=== PATIENT | male | born 1935 | race Two or more races ===

== ENCOUNTER 2016-11-20 00:40 | Inpatient (IN) | payer MEDICARE, OTHER ==
[~2016-11-20] VITALS: Ht 172.7 cm; Wt 80.7 kg
--- NOTE | 2016-11-20 00:30 | NUR ---
GPS RN NOTE RECEIVED PATIENT VIA GURNEY FROM [facility], PATIENT IS ALERT AND ORIENTEDX2, CONFUSED, IRRITABLE MOOD, ON 5150 DTO, AND BECAME MORE AGGRESSIVE RECENTLY PER PAPER REPORT. AMBULATORY AND DISCOLORATION ON BUE NOTED. PICTURES TAKEN AND PUT THEM IN A CHART. SRX2, BED IN LOW POSITION, WILL CONTINUE TO MONITOR PATIENT.
[2016-11-20 01:00] VITALS: BP 132/84
[2016-11-20] MEDS ORDERED: TEMAZEPAM 7.5 MG CAPSULE PO PRN (01:00)
[2016-11-20] MEDS ORDERED: MAG HYDROX/AL HYDROX/SIMETH 30 ML UDC PO PRN (01:00)
[2016-11-20] MEDS ORDERED: ACETAMINOPHEN 325 MG TABLET PO PRN (01:00)
[2016-11-20] MEDS ORDERED: MAGNESIUM HYDROXIDE 30 ML UDC PO PRN (01:00)
[2016-11-20] MEDS ORDERED: LORAZEPAM 0.5 MG TABLET PO PRN (01:00)
[2016-11-20] MEDS ORDERED: INSU100I4 SQ (01:03)
[2016-11-20] MEDS ORDERED: ATOR40TA PO (01:03)
[2016-11-20] MEDS ORDERED: CHOL100040 PO (01:03)
[2016-11-20] MEDS ORDERED: AMLO10TA2 PO (01:03)
[2016-11-20] MEDS ORDERED: FURO40TA5 PO (01:03)
[2016-11-20] MEDS ORDERED: FOLI1TAB16 PO (01:03)
[2016-11-20] MEDS ORDERED: LOSA50TA21 PO (01:08)
[2016-11-20] MEDS ORDERED: METO25TA6 PO (01:08)
[2016-11-20] MEDS ORDERED: LEVO50TA PO (01:08)
[2016-11-20] MEDS ORDERED: INSU100V7 SQ (01:08)
[2016-11-20] MEDS ORDERED: SERT50TA12 PO (01:08)
[2016-11-20] MEDS ORDERED: LACT1CAP39 PO (01:08)
[2016-11-20] MEDS ORDERED: TRAM50TA2 PO ×2 (01:08→01:09)
[2016-11-20] MEDS ORDERED: LORAZEPAM 1 MG TABLET ONE (01:15)
[2016-11-20] MEDS ORDERED: TRAMADOL HCL 50 MG TABLET PO PRN (01:30)
[2016-11-20 08:44] VITALS: BP 140/88
[2016-11-20] MEDS ORDERED: INSULIN ASPART NOVOLOG 100 UNIT/ML CARTRIDGE SQ SCH (09:00)
[2016-11-20] MEDS: FOLIC ACID 1 MG TABLET PO SCH (09:01)
[2016-11-20] MEDS: METOPROLOL TARTRATE 25 MG TABLET PO SCH (09:02)
[2016-11-20] MEDS: CHOLECALCIFEROL 1,000 UNIT TABLET (VIT D3) PO SCH (09:02)
[2016-11-20] MEDS: ACIDOPHILUS/BULGARICUS 1 EACH TAB.CHEW PO SCH (09:02)
[2016-11-20] MEDS: AMLODIPINE BESYLATE 10 MG TABLET PO SCH (09:02)
[2016-11-20] MEDS: LOSARTAN POTASSIUM 50 MG TABLET PO SCH (09:02)
[2016-11-20] MEDS: ATORVASTATIN 40 MG TABLET PO SCH (09:03)
[2016-11-20] MEDS: FUROSEMIDE 40 MG TABLET PO SCH (09:03)
[2016-11-20] MEDS: LEVOTHYROXINE SODIUM 50 MCG TABLET PO SCH (09:04)
--- NOTE | 2016-11-20 10:30 | NUR ---
Patient resides in a board and care facility ([facility] [address] [address]). SYDNEY attempted to contact Fredi or Karla (administrators- [phone]) to see if they will be re-accepting the patient however they did not answer and SYDNEY left a message with her contact information. SYDNEY spoke to the patient's girlfriend (Kojo Trimble- [phone]) who stated that he is unsure if board and care will be re-accepting him as he has become aggressive towards staff members. SYDNEY will work with MD and patient for appropriate placement. SW will help form a safe and proper discharge. Patient is in need of psychiatrist referrals prior to discharge. Addendum: 11/20/16 at 1030 by DAVE GRIMES Initial DC Plan:
[2016-11-20] MEDS ORDERED: DEXTROSE 50%-WATER 50 ML DISP.SYRIN IV PRN (11:30)
[2016-11-20] MEDS: BLOOD SUGAR DIAGNOSTIC 1 EACH STRIP VI SCH ×3 (12:29→21:24)
[2016-11-20] MEDS: INSULIN ASPART NOVOLOG 100 UNIT/ML CARTRIDGE SQ SCH ×2 (12:32→17:48)
[2016-11-20 15:49] VITALS: BP 106/68
[2016-11-20] MEDS: QUETIAPINE FUMARATE 25 MG TABLET PO SCH (16:17)
[2016-11-20] MEDS: INSULIN REGULAR, HUMAN 100 UNIT/ML 3 ML VIAL SQ PRN (17:50)
--- NOTE | 2016-11-20 19:30 | NUR ---
GPSRN RECEIVED FULLY AWAKE, COOPERATIVE, LIMITED VERBAL. APPEARS TO UNDERSTAND PLAN OF CARE AND MEDICATION REGIMEN. NO NEEDS FOR NOW.
[2016-11-20 20:00] VITALS: BP 142/98
[2016-11-20] MEDS: TRAMADOL HCL 50 MG TABLET PO SCH (21:23)
[2016-11-20] MEDS: SERTRALINE HCL 50 MG TABLET PO SCH (21:24)
[2016-11-20] MEDS: INSULIN DETEMIR 100 UNIT/ML CARTRIDGE SQ SCH (21:31)
[2016-11-20] MEDS: *INSULIN REGULAR(HUMULIN R)HUM 100 UNIT/ML VIAL SQ PRN (21:33)
[2016-11-20] MEDS ORDERED: SERTRALINE HCL 50 MG TABLET PO SCH ×2 (22:00)
--- NOTE | 2016-11-20 22:00 | NUR ---
GPSRN BS 178, DUE MEDS ADMINISTERED. SNACKS AT BEDSIDE, ENCOURAGED TO EAT. STATED WILL FINISH LATER. OBSERVED FOR SIGNS AND SYMPTOMS OF HYPO AND HYPERGLYCEMIA.
--- NOTE | 2016-11-20 23:57 | NUR ---
GPSRN SLEEPING APPEARS COMFORTABLE.
--- NOTE | 2016-11-21 06:54 | NUR ---
GPSRN STILL ASLEEP. NO SIGNS OF HYPO/HYPERGLYCEMIA. CLOSELY WATCHED
[2016-11-21] MEDS: INSULIN REGULAR, HUMAN 100 UNIT/ML 3 ML VIAL SQ PRN ×2 (07:44→12:06)
[2016-11-21] MEDS: BLOOD SUGAR DIAGNOSTIC 1 EACH STRIP VI SCH ×4 (07:45→21:29)
[2016-11-21] MEDS: INSULIN ASPART NOVOLOG 100 UNIT/ML CARTRIDGE SQ SCH ×3 (07:45→17:08)
[2016-11-21] MEDS: ATORVASTATIN 40 MG TABLET PO SCH (08:25)
[2016-11-21] MEDS: QUETIAPINE FUMARATE 25 MG TABLET PO SCH ×2 (08:26→17:06)
[2016-11-21] MEDS: CHOLECALCIFEROL 1,000 UNIT TABLET (VIT D3) PO SCH (08:26)
[2016-11-21] MEDS: FUROSEMIDE 40 MG TABLET PO SCH (08:26)
[2016-11-21] MEDS: FOLIC ACID 1 MG TABLET PO SCH (08:26)
[2016-11-21] MEDS: METOPROLOL TARTRATE 25 MG TABLET PO SCH (08:26)
[2016-11-21] MEDS: ACIDOPHILUS/BULGARICUS 1 EACH TAB.CHEW PO SCH (08:26)
[2016-11-21] MEDS: LEVOTHYROXINE SODIUM 50 MCG TABLET PO SCH (08:26)
[2016-11-21] MEDS: AMLODIPINE BESYLATE 10 MG TABLET PO SCH (08:27)
[2016-11-21] MEDS: LOSARTAN POTASSIUM 50 MG TABLET PO SCH (08:27)
[2016-11-21 08:28] LABS: ALBUMIN 2.9 g/dL (3.4-5.0); BILIRUBIN,TOTAL 0.4 mg/dL (0.2-1.0); CALCIUM, SERUM 8.2 mg/dL (8.5-10.1); CREATININE 2.7 mg/dL (0.6-1.3); POTASSIUM 3.9 mmol/L (3.5-5.1); TOTAL PROTEIN, SERUM 5.9 g/dL (6.4-8.2)
[2016-11-21 08:32] VITALS: BP 99/59
[2016-11-21] MEDS: INSULIN DETEMIR 100 UNIT/ML CARTRIDGE SQ SCH ×2 (08:33→21:33)
[2016-11-21 08:34] LABS: THYROID STIMULATING HORMONE 2.429 uIU/mL (0.358-3.74)
[2016-11-21 16:24] VITALS: BP 127/92
--- NOTE | 2016-11-21 19:30 | NUR ---
GPS RN NOTE, RECEIVED PATIENT AWAKE AND IN BED, NO S/S OR COMPLAINTS OF PAIN AT THIS TIME. PATIENT IS DISPLAYING NO S/S OF APPARENT DISTRESS AT THIS TIME. PATIENT BREATHING IS UNLABORED WITH EQUAL RISE AND FALL OF THE CHEST. PATIENT IS ALERT AND ORIENTED X 2 ON ROOM AIR WITH A SPO2 95%. PATIENT COMPLIANT WITH MEDICATIONS, DEPRESSED, EASILY AGITATED WITH CARE, DISORGANIZED, CONFUSED AT TIMES, AND NEEDS REORIENTATION. PATIENT DENIES SUICIDE AND HOMICIDAL IDEATIONS AT THIS TIME. PATIENT ASSISTED WITH TURNING AND REPOSITIONING Q2HR AND PRN FOR COMFORT AND CIRCULATION. PATIENT HAS NO NEEDS AT THIS TIME. PATIENT REFUSED SKIN ASSESSMENT TODAY. PATIENT EDUCATED ON THE USE OF THE CALL TOUSSAINT. PATIENT BED SIDE RAILS UP X2 FOR SAFETY, BED IS LOCKED AND LOW WILL CONTINUE TO MONITOR AND MAINTAIN SAFETY.
[2016-11-21 20:11] VITALS: BP 120/69
[2016-11-21] MEDS: TRAMADOL HCL 50 MG TABLET PO SCH (21:24)
[2016-11-21] MEDS: SERTRALINE HCL 50 MG TABLET PO SCH (21:24)
--- NOTE | 2016-11-21 21:29 | NUR ---
GPS RN NOTE, PERFORMED ACCU CHECK ON PATIENT WITH A BLOOD SUGAR RESULT OF 195. GAVE 3 UNITS OF REGULAR INSULIN PER SLIDING SCALE AND GAVE 25 UNITS OF LEVEMIR INSULIN. WILL CONTINUE TO MONITOR THIS PATIENT.
[2016-11-21] MEDS: *INSULIN REGULAR(HUMULIN R)HUM 100 UNIT/ML VIAL SQ PRN (21:34)
[2016-11-22 07:10] LABS: BASOPHILS % (AUTO) 0.3 % (0.0-2.0); EOSINOPHILS # (AUTO) 0.1 /CMM (0.0-0.7); EOSINOPHILS % (AUTO) 1.1 % (0.0-6.0); HEMATOCRIT 32 % (39-51); HEMOGLOBIN 10.8 g/dL (13.5-17.5); LYMPHOCYTES % (AUTO) 12.3 % (20.0-44.0); MEAN CORPUSCULAR HEMOGLOBIN 31 PG (26.0-33.0); MEAN CORPUSCULAR HGB CONC 34 g/dl (31.0-36.0); MEAN CORPUSCULAR VOLUME 91 fL (80-96); MONOCYTES # (AUTO) 0.8 /CMM (0.1-1.30); MONOCYTES % (AUTO) 9.9 % (2.0-12.0); NEUTROPHILS # (AUTO) 6.5 /CMM (1.8-8.9); NEUTROPHILS % (AUTO) 76.4 % (43.0-81.0); PLATELET COUNT (AUTO) 145 /CMM (150-450); RDW COEFFICIENT OF VARIATION 13.9 (11.5-15.0); RED BLOOD CELL COUNT(AUTO) 3.52 MIL/uL (4.5-6.0); WHITE BLOOD COUNT (AUTO) 8.5 K/uL (4.3-11.0)
[2016-11-22 07:38] LABS: ALBUMIN 2.8 g/dL (3.4-5.0); BILIRUBIN,TOTAL 0.3 mg/dL (0.2-1.0); CALCIUM, SERUM 8.2 mg/dL (8.5-10.1); CREATININE 2.5 mg/dL (0.6-1.3); MAGNESIUM 2.4 mg/dL (1.8-2.4); PHOSPHORUS 3.9 mg/dL (2.5-4.9); POTASSIUM 3.8 mmol/L (3.5-5.1); TOTAL PROTEIN, SERUM 5.8 g/dL (6.4-8.2)
[2016-11-22] MEDS: BLOOD SUGAR DIAGNOSTIC 1 EACH STRIP VI SCH ×4 (08:19→22:00)
[2016-11-22] MEDS: LEVOTHYROXINE SODIUM 50 MCG TABLET PO SCH (08:25)
[2016-11-22 08:26] VITALS: BP 144/82
[2016-11-22] MEDS: INSULIN ASPART NOVOLOG 100 UNIT/ML CARTRIDGE SQ SCH ×3 (08:28→17:37)
[2016-11-22] MEDS: INSULIN DETEMIR 100 UNIT/ML CARTRIDGE SQ SCH ×2 (08:29→21:54)
[2016-11-22] MEDS: FOLIC ACID 1 MG TABLET PO SCH (08:49)
[2016-11-22] MEDS: ACIDOPHILUS/BULGARICUS 1 EACH TAB.CHEW PO SCH (08:49)
[2016-11-22] MEDS: METOPROLOL TARTRATE 25 MG TABLET PO SCH (08:50)
[2016-11-22] MEDS: QUETIAPINE FUMARATE 25 MG TABLET PO SCH ×2 (08:50→17:32)
[2016-11-22] MEDS: CHOLECALCIFEROL 1,000 UNIT TABLET (VIT D3) PO SCH (08:50)
[2016-11-22] MEDS: ATORVASTATIN 40 MG TABLET PO SCH (08:50)
[2016-11-22] MEDS: AMLODIPINE BESYLATE 10 MG TABLET PO SCH (08:50)
[2016-11-22] MEDS: LOSARTAN POTASSIUM 50 MG TABLET PO SCH (08:51)
[2016-11-22] MEDS: INSULIN REGULAR, HUMAN 100 UNIT/ML 3 ML VIAL SQ PRN ×2 (12:13→17:39)
[2016-11-22 15:59] VITALS: BP 100/51
--- NOTE | 2016-11-22 19:30 | NUR ---
GPS RN NOTE, RECEIVED PATIENT AWAKE AND IN BED, NO S/S OR COMPLAINTS OF PAIN AT THIS TIME. PATIENT IS DISPLAYING NO S/S OF APPARENT DISTRESS AT THIS TIME. PATIENT BREATHING IS UNLABORED WITH EQUAL RISE AND FALL OF THE CHEST. PATIENT IS ALERT AND ORIENTED X 2 ON ROOM AIR WITH A SPO2 97%. PATIENT COMPLIANT WITH MEDICATIONS, DEPRESSED, CALM, COOPERATIVE, DISORGANIZED, AND NEEDS REORIENTATION. PATIENT DENIES SUICIDE AND HOMICIDAL IDEATIONS AT THIS TIME. PATIENT ASSISTED WITH TURNING AND REPOSITIONING Q2HR AND PRN FOR COMFORT AND CIRCULATION. PATIENT HAS NO NEEDS AT THIS TIME. PATIENT REFUSED SKIN ASSESSMENT TODAY. PATIENT EDUCATED ON THE USE OF THE CALL TOUSSAINT. PATIENT BED SIDE RAILS UP X2 FOR SAFETY, BED IS LOCKED AND LOW WILL CONTINUE TO MONITOR AND MAINTAIN SAFETY.
[2016-11-22 19:54] VITALS: BP 111/79
[2016-11-22] MEDS: TRAMADOL HCL 50 MG TABLET PO SCH (21:40)
[2016-11-22] MEDS: SERTRALINE HCL 50 MG TABLET PO SCH (21:40)
--- NOTE | 2016-11-22 22:00 | NUR ---
GPS RN NOTE, PERFORMED ACCU CHECK ON PATIENT WITH A BLOOD SUGAR RESULT OF 83. GAVE 0 UNITS OF REGULAR INSULIN PER SLIDING SCALE AND GAVE 20 UNITS OF LEVEMIR INSULIN. GAVE WHOLE TUNA SAND WITCH 2 GRAM CRACKERS, 2 APPLE JUICES, AND 1 ORANGE JUICE. WILL CONTINUE TO MONITOR THIS PATIENT.
[2016-11-23 07:10] LABS: CALCIUM, SERUM 7.7 mg/dL (8.5-10.1); CREATININE 2.5 mg/dL (0.6-1.3)
[2016-11-23] MEDS: BLOOD SUGAR DIAGNOSTIC 1 EACH STRIP VI SCH ×4 (07:22→21:45)
[2016-11-23] MEDS: INSULIN ASPART NOVOLOG 100 UNIT/ML CARTRIDGE SQ SCH ×3 (07:25→17:19)
[2016-11-23] MEDS: LEVOTHYROXINE SODIUM 50 MCG TABLET PO SCH (07:41)
[2016-11-23 08:00] VITALS: BP 127/88
[2016-11-23] MEDS: ATORVASTATIN 40 MG TABLET PO SCH (08:15)
[2016-11-23] MEDS: LOSARTAN POTASSIUM 50 MG TABLET PO SCH (08:16)
[2016-11-23] MEDS: ACIDOPHILUS/BULGARICUS 1 EACH TAB.CHEW PO SCH (08:16)
[2016-11-23] MEDS: QUETIAPINE FUMARATE 25 MG TABLET PO SCH ×2 (08:16→17:24)
[2016-11-23] MEDS: METOPROLOL TARTRATE 25 MG TABLET PO SCH (08:18)
[2016-11-23] MEDS: FOLIC ACID 1 MG TABLET PO SCH (08:19)
[2016-11-23] MEDS: AMLODIPINE BESYLATE 10 MG TABLET PO SCH (08:19)
[2016-11-23] MEDS: CHOLECALCIFEROL 1,000 UNIT TABLET (VIT D3) PO SCH (08:19)
[2016-11-23] MEDS: INSULIN DETEMIR 100 UNIT/ML CARTRIDGE SQ SCH ×2 (08:25→21:00)
[2016-11-23 16:00] VITALS: BP 134/88
[2016-11-23] MEDS: INSULIN REGULAR, HUMAN 100 UNIT/ML 3 ML VIAL SQ PRN (17:21)
--- NOTE | 2016-11-23 19:30 | NUR ---
GPS OPENING NOTES RECEIVED Pt AWAKE IN ROOM WITH FAMILY VISITING AT BEDSIDE. NO S/S OF ACUTE DISTRESS OR SOB NOTED. Pt BREATHING IS UNLABORED WITH EQUAL RISE AND FALL OF THE CHEST. NO SIGNS OF PAIN NOTED AT THIS TIME. Pt IS A/OX2-3, AMBULATORY, VERBAL, ABLE TO MAKE NEEDS KNOWN. SAFETY MEASURES IN PLACE. BED LOW, LOCKED, HOB ELEVATED, & SIDE RAILS UP. WILL CONTINUE TO MONITOR Pt THROUGHOUT THE NIGHT AND MAINTAIN SAFETY.
[2016-11-23 20:10] VITALS: BP 106/69
[2016-11-23] MEDS: SERTRALINE HCL 50 MG TABLET PO SCH (21:36)
[2016-11-23] MEDS: TRAMADOL HCL 50 MG TABLET PO SCH (21:39)
--- NOTE | 2016-11-23 22:36 | NUR ---
BG 80. WITH HELD SCHEDULED LEVEMIR DOSE OF 20UN DUE TO LOW BG. PROVIDED SNACKS AND JUICE.
--- NOTE | 2016-11-24 06:30 | NUR ---
RN CLOSING NOTES NO SIGNIFICANT CHANGES. Pt DID NOT SLEEP DURING THE NIGHT EVEN WITH RESTORIL AND ATIVAN GIVEN. NO S/S OF ACUTE DISTRESS OR SOB NOTED DURING THE NIGHT. ALL SAFETY MEASURES CARRIED OUT. ALL NEEDS MET AND ATTENDED TO. WILL ENDORSE TO DAYSHIFT RN FOR Pt's ASHLEY.
[2016-11-24] MEDS: BLOOD SUGAR DIAGNOSTIC 1 EACH STRIP VI SCH ×4 (07:06→21:09)
[2016-11-24 08:00] VITALS: BP 116/85
[2016-11-24] MEDS: QUETIAPINE FUMARATE 25 MG TABLET PO SCH ×2 (08:28→16:21)
[2016-11-24] MEDS: ACIDOPHILUS/BULGARICUS 1 EACH TAB.CHEW PO SCH (08:28)
[2016-11-24] MEDS: AMLODIPINE BESYLATE 10 MG TABLET PO SCH (08:29)
[2016-11-24] MEDS: FOLIC ACID 1 MG TABLET PO SCH (08:29)
[2016-11-24] MEDS: METOPROLOL TARTRATE 25 MG TABLET PO SCH (08:30)
[2016-11-24] MEDS: ATORVASTATIN 40 MG TABLET PO SCH (08:30)
[2016-11-24] MEDS: CHOLECALCIFEROL 1,000 UNIT TABLET (VIT D3) PO SCH (08:31)
[2016-11-24] MEDS: LOSARTAN POTASSIUM 50 MG TABLET PO SCH (08:31)
[2016-11-24] MEDS: LEVOTHYROXINE SODIUM 50 MCG TABLET PO SCH (08:31)
[2016-11-24] MEDS: INSULIN ASPART NOVOLOG 100 UNIT/ML CARTRIDGE SQ SCH ×3 (08:36→16:50)
[2016-11-24] MEDS: INSULIN DETEMIR 100 UNIT/ML CARTRIDGE SQ SCH ×2 (08:38→21:00)
[2016-11-24] MEDS: INSULIN REGULAR, HUMAN 100 UNIT/ML 3 ML VIAL SQ PRN ×2 (12:28→16:51)
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
[2016-11-24 14:14] LABS: *SPE A/G RATIO 1.3 (0.7-1.7); *SPE ALPHA-1-GLOBULIN 0.2 g/dL (0.0-0.4); *SPE ALPHA-2-GLOBULIN 0.8 g/dL (0.4-1.0); *SPE BETA GLOBULIN 0.8 g/dL (0.7-1.3); *SPE GLOBULIN, TOTAL 2.4 g/dL (2.2-3.9); *SPE M-SPIKE Not Observed g/dL (Not Observed); *SPE PROTEIN TOTAL 5.4 g/dL (6.0-8.5); *SPEGAMMA GLOBULIN 0.6 g/dL (0.4-1.8)
[2016-11-24 16:00] VITALS: BP 122/68
--- NOTE | 2016-11-24 19:30 | NUR ---
RN OPENING NOTES: PATIENT IN ROOM ON BED, ASLEEP BUT EASILY AROUSABLE; ALERT X1-2 AND VERBALLY RESPONSIVE. PATIENT IS NOTED TO BE CALM. PATIENT IS NOT IN APPARENT DISTRESS AT THIS TIME, NO COMPLAINTS OF PAIN OR DISCOMFORT. WITHOUT VERBALIZATION OF ACTUAL PLANS TO HURT SELF OR OTHERS. ACCUCHECKS TO BE DONE ORDERED. SAFETY AND COMFORT MEASURES ENSURED; SAFETY CHECKS EVERY 15 MINS PER DEPARTMENT PROTOCOL. ANTICIPATED AND ATTENDED NEEDS. CONTINUOUSLY MONITORED FOR SAFETY AND BEHAVIOR.
[2016-11-24 19:45] VITALS: BP 117/62
--- NOTE | 2016-11-24 21:08 | NUR ---
RN NOTES: LEVEMIR SCHEDULED AT THIS TIME NOT ADMINISTERED BS CHECK <60 MG/DL. 8OZ OF ORANGE JUICE GIVEN PER PROTOCOL. TO OFFER SNACKS WELL
--- NOTE | 2016-11-24 21:09 | NUR ---
RN NOTES: ACCUCEHCK DONE WITH RESULT OF 59MG/DL. PT WITHOUT IV ACCESS AT THIS TIME. PT IS STILL AROUSABLE AND ALERT. ENCOURAGED PATIENT TO DRINK 8 OZ OF ORANGE JUICE. PATIENT ABLE TO FINISH AND TOLERATE THE WHOLE 8OZ WELL. ASPIRATION PRECAUTIONS ENSURED. TO RECHECK RANDOM BLOOD SUGAR FOR EFFECTIVITY OF ORANGE JUICE. 2214 RECHECKED RANDOM BLOOD SUGAR, NOW AT 92 MG/DL. NO ALTERATIONS IN PATIENTS MENTATION, PT IS SLEEPING BUT EASILY AROUSABLE. TO RECHECK BLOOD SUGAR AGAIN AND TO RE 0FFER SNACKS. MONITORED PATIENT FOR SIGNS AND SYMPTOMS OF ALTERED BLOOD SUGAR.
[2016-11-24] MEDS: TRAMADOL HCL 50 MG TABLET PO SCH (21:13)
[2016-11-24] MEDS: SERTRALINE HCL 50 MG TABLET PO SCH (21:13)
[2016-11-25 04:08] LABS: VIT D, 25-HYDROXY 34.8 ng/mL (30.0-100.0)
[2016-11-25] MEDS: BLOOD SUGAR DIAGNOSTIC 1 EACH STRIP VI SCH ×4 (06:39→21:36)
[2016-11-25 07:04] LABS: BASOPHILS # (AUTO) 0.1 /CMM (0.0-0.2); BASOPHILS % (AUTO) 0.8 % (0.0-2.0); EOSINOPHILS # (AUTO) 0.1 /CMM (0.0-0.7); EOSINOPHILS % (AUTO) 1.8 % (0.0-6.0); HEMATOCRIT 33 % (39-51); HEMOGLOBIN 10.7 g/dL (13.5-17.5); LYMPHOCYTES % (AUTO) 13.6 % (20.0-44.0); MEAN CORPUSCULAR HEMOGLOBIN 30 PG (26.0-33.0); MEAN CORPUSCULAR HGB CONC 33 g/dl (31.0-36.0); MEAN CORPUSCULAR VOLUME 92 fL (80-96); MONOCYTES # (AUTO) 0.6 /CMM (0.1-1.30); MONOCYTES % (AUTO) 8.2 % (2.0-12.0); NEUTROPHILS # (AUTO) 5.5 /CMM (1.8-8.9); NEUTROPHILS % (AUTO) 75.6 % (43.0-81.0); PLATELET COUNT (AUTO) 147 /CMM (150-450); RDW COEFFICIENT OF VARIATION 14.8 (11.5-15.0); RED BLOOD CELL COUNT(AUTO) 3.58 MIL/uL (4.5-6.0); WHITE BLOOD COUNT (AUTO) 7.3 K/uL (4.3-11.0)
[2016-11-25 07:15] LABS: CALCIUM, SERUM 7.9 mg/dL (8.5-10.1); CREATININE 2.6 mg/dL (0.6-1.3); MAGNESIUM 2.5 mg/dL (1.8-2.4); PHOSPHORUS 4.2 mg/dL (2.5-4.9); POTASSIUM 4.5 mmol/L (3.5-5.1)
[2016-11-25] MEDS: INSULIN ASPART NOVOLOG 100 UNIT/ML CARTRIDGE SQ SCH (07:30)
[2016-11-25 08:00] VITALS: BP 137/79
--- NOTE | 2016-11-25 08:00 | NUR ---
pt bs 113 mg dl, aspart not given, aware and held dosage.
[2016-11-25] MEDS: LOSARTAN POTASSIUM 50 MG TABLET PO SCH (09:01)
[2016-11-25] MEDS: LEVOTHYROXINE SODIUM 50 MCG TABLET PO SCH (09:01)
[2016-11-25] MEDS: ATORVASTATIN 40 MG TABLET PO SCH (09:01)
[2016-11-25] MEDS: METOPROLOL TARTRATE 25 MG TABLET PO SCH (09:02)
[2016-11-25] MEDS: QUETIAPINE FUMARATE 25 MG TABLET PO SCH ×2 (09:02→17:32)
[2016-11-25] MEDS: CHOLECALCIFEROL 1,000 UNIT TABLET (VIT D3) PO SCH (09:02)
[2016-11-25] MEDS: ACIDOPHILUS/BULGARICUS 1 EACH TAB.CHEW PO SCH (09:02)
[2016-11-25] MEDS: FOLIC ACID 1 MG TABLET PO SCH (09:03)
[2016-11-25] MEDS: AMLODIPINE BESYLATE 10 MG TABLET PO SCH (09:03)
[2016-11-25] MEDS: INSULIN DETEMIR 100 UNIT/ML CARTRIDGE SQ SCH ×2 (09:04→21:36)
[2016-11-25 10:48] LABS: CALCITRIOL VIT D,1, 25 DIHYDRO 35.6 pg/mL (19.9-79.3)
[2016-11-25 12:00] VITALS: BP 110/65
[2016-11-25] MEDS: INSULIN REGULAR, HUMAN 100 UNIT/ML 3 ML VIAL SQ PRN (12:27)
[2016-11-25 14:17] LABS: PTH, INTACT 104 pg/mL (15-65)
--- NOTE | 2016-11-25 16:50 | NUR ---
Daily Daly and Fredi from [facility]& ([phone]) [place] came to interview patient at 3:30pm.
[2016-11-25 20:16] VITALS: BP 140/79
[2016-11-25] MEDS: TRAMADOL HCL 50 MG TABLET PO SCH (21:36)
[2016-11-25] MEDS: SERTRALINE HCL 50 MG TABLET PO SCH (21:36)
[2016-11-25] MEDS: *INSULIN REGULAR(HUMULIN R)HUM 100 UNIT/ML VIAL SQ PRN (22:04)
[2016-11-26 08:00] VITALS: BP 139/89
[2016-11-26] MEDS: BLOOD SUGAR DIAGNOSTIC 1 EACH STRIP VI SCH ×4 (08:13→21:31)
[2016-11-26] MEDS: ACIDOPHILUS/BULGARICUS 1 EACH TAB.CHEW PO SCH (08:13)
[2016-11-26] MEDS: ATORVASTATIN 40 MG TABLET PO SCH (08:13)
[2016-11-26] MEDS: FOLIC ACID 1 MG TABLET PO SCH (08:13)
[2016-11-26] MEDS: LEVOTHYROXINE SODIUM 50 MCG TABLET PO SCH (08:13)
[2016-11-26] MEDS: QUETIAPINE FUMARATE 25 MG TABLET PO SCH ×2 (08:14→16:20)
[2016-11-26] MEDS: CHOLECALCIFEROL 1,000 UNIT TABLET (VIT D3) PO SCH (08:14)
[2016-11-26] MEDS: METOPROLOL TARTRATE 25 MG TABLET PO SCH (08:14)
[2016-11-26] MEDS: LOSARTAN POTASSIUM 50 MG TABLET PO SCH (08:14)
[2016-11-26] MEDS: AMLODIPINE BESYLATE 10 MG TABLET PO SCH (08:15)
[2016-11-26] MEDS: INSULIN DETEMIR 100 UNIT/ML CARTRIDGE SQ SCH ×2 (08:39→21:32)
[2016-11-26] MEDS: INSULIN REGULAR, HUMAN 100 UNIT/ML 3 ML VIAL SQ PRN (12:01)
--- NOTE | 2016-11-26 13:24 | NUR ---
Received a call from [facility] oyster worker Marlene ([phone]) who stated that she obtained the information that the filed. Marlene was notified that patient was being discharged tomorrow to [facility] ([address] [place] [address] ). Stated that since it was in a different area, another manager social responsibility might need to be assigned and that she needs to speak to her day haul youth supervisor. Informed that discharge was planned for tomorrow and that girlfriend was going to brick picker the patient. oyster worker appreciated the information and will follow up.
[2016-11-26 16:00] VITALS: BP 119/57
[2016-11-26 20:00] VITALS: BP 111/73
--- NOTE | 2016-11-26 20:06 | NUR ---
GPS/RN NOTES PT AWAKE, AMBULATING IN THE HALLS. A/OX2-3. PLEASANT AND COOPERATIVE. DENIES PAIN, NO S/S OF SOB OR DISTRESS. BREATHING IS EVEN AND UNLABORED. BED IN LOW/LOCKED POSITION, SIDE RAILS UP. WILL CONTINUE TO MONITOR
[2016-11-26 20:37] VITALS: BP 111/73
[2016-11-26] MEDS: *INSULIN REGULAR(HUMULIN R)HUM 100 UNIT/ML VIAL SQ PRN (21:32)
--- NOTE | 2016-11-26 21:35 | NUR ---
GPS/RN NOTES BLOOD SUGAR 229, ADMINISTERED 4 UNITS OF INSULIN PER SLIDING SCALE. SNACKS PROVIDED AT BEDSIDE.
[2016-11-26] MEDS: SERTRALINE HCL 50 MG TABLET PO SCH (21:37)
[2016-11-26] MEDS: TRAMADOL HCL 50 MG TABLET PO SCH (21:37)
--- NOTE | 2016-11-27 06:52 | NUR ---
GPS/RN CLOSING NOTES PT ASLEEP, AROUSABLE TO NAME, A/OX3. BREATHING EVEN AND UNLABORED. NO S/S OF DISTRESS NOTED. PT SLEPT ON/OFF THROUGHOUT THE NIGHT. AMBULATED IN THE HALLWAY. SAFETY PRECAUTIONS IMPLEMENTED THROUGHOUT SHIFT. FREQUENT VISUAL CHECKS. WILL ENDORSE TO AM SHIFT ASHLEY.
[2016-11-27] MEDS: BLOOD SUGAR DIAGNOSTIC 1 EACH STRIP VI SCH ×2 (07:25→11:16)
[2016-11-27] MEDS: INSULIN REGULAR, HUMAN 100 UNIT/ML 3 ML VIAL SQ PRN ×2 (07:28→11:20)
[2016-11-27 08:00] VITALS: BP 121/86
[2016-11-27] MEDS: LEVOTHYROXINE SODIUM 50 MCG TABLET PO SCH (08:39)
[2016-11-27] MEDS: ACIDOPHILUS/BULGARICUS 1 EACH TAB.CHEW PO SCH (08:39)
[2016-11-27] MEDS: FOLIC ACID 1 MG TABLET PO SCH (08:39)
[2016-11-27] MEDS: ATORVASTATIN 40 MG TABLET PO SCH (08:39)
[2016-11-27] MEDS: QUETIAPINE FUMARATE 25 MG TABLET PO SCH (08:40)
[2016-11-27] MEDS: CHOLECALCIFEROL 1,000 UNIT TABLET (VIT D3) PO SCH (08:40)
[2016-11-27] MEDS: AMLODIPINE BESYLATE 10 MG TABLET PO SCH (08:41)
[2016-11-27] MEDS: METOPROLOL TARTRATE 25 MG TABLET PO SCH (08:41)
[2016-11-27 08:42] VITALS: BP 121/86
[2016-11-27] MEDS: LOSARTAN POTASSIUM 50 MG TABLET PO SCH (08:42)
[2016-11-27] MEDS: INSULIN DETEMIR 100 UNIT/ML CARTRIDGE SQ SCH (08:44)
--- NOTE | 2016-11-27 09:07 | NUR ---
PT. WITH AN ORDER TO D/C HOLD AND D/C TO [facility]. WITHOUT DISTRESS, DENIES SUICIDAL AND HOMICIDAL AND TO FOLLOW UP WITH PSYCH AND MEDICAL DOCTORS.
--- NOTE | 2016-11-27 10:50 | NUR ---
Reminded patient that he was going home today and girlfriend was picking him up. Patient denied suicidal/homicidal ideations. Stated he was hungry and wanted to eat before leaving. SW informed charge nurse who ordered an early lunch tray for the patient.
--- NOTE | 2016-11-27 11:45 | NUR ---
GPS RN D/C NOTES PT D/C TO [facility].PT. IN STABLE CONDITION DENIES ANY SI HI AT THIS TIME , PT D/C WITH ALL BELONGINGS AND EXIT CARE PRESCRIPTIONS PROVIDED, PT PICKED UP WITH TRANSPORTING IN PRIVATE CAR , ACCOMPANIED BY STAFF AND .
--- NOTE | 2016-11-27 12:00 | NUR ---
Discharge Plan: Patient was discharged back [facility] care facility [facility] [address] [place] [address] (administrators- [phone]). Patient was picked up by his girlfriend Kojo Trimble- [phone] via private car. Patient received Rx. Patient denied S/H ideations and V/A hallucinations upon discharge. Facilitated info to IDT team who are in agreement with discharge arrangement. The multidisciplinary exitcare form was done, printed, signed, and given to the patient.
== END 2016-11-27 11:45 | disposition home or self-care (01) | DRG 885 ==
LOC: GPS 00:40
PROVIDERS: ADMIT Psychiatry & Neurology Psychiatry; ATTEND Student in an Organized Health Care Education/Training Program
DX: F39 Unspecified mood [affective] disorder (principal); N17.0 Acute kidney failure with tubular necrosis; N18.9 Chronic kidney disease, unspecified; E44.0 Moderate protein-calorie malnutrition; E03.9 Hypothyroidism, unspecified; E78.5 Hyperlipidemia, unspecified; F03.90 Unspecified dementia, unspecified severity, without behavioral disturbance, psychotic disturbance, mood disturbance, and anxiety; Z95.2 Presence of prosthetic heart valve; I12.9 Hypertensive chronic kidney disease with stage 1 through stage 4 chronic kidney disease, or unspecified chronic kidney disease; E11.22 Type 2 diabetes mellitus with diabetic chronic kidney disease; D63.8 Anemia in other chronic diseases classified elsewhere; Z79.899 Other long term (current) drug therapy
CPT/HCPCS: 36415; 80048-TC; 80053-TC; 80061-TC; 82306; 82550-TC; 82652; 82962-TC; 83735-TC; 83970; 84100-TC; 84155; 84165; 84443-TC; 85025-TC; 87081-TC; J1815